=== PATIENT | female | born 1970 | race Caucasian/White ===

== ENCOUNTER → 2016-11-17 | Outpatient (CLI) | payer OTHER | LOC: RAD 09:53 | DX: J06.9 Acute upper respiratory infection, unspecified (principal) | CPT/HCPCS: 71020 ==

== ENCOUNTER 2020-06-27 14:08 | Emergency (ER) | payer OTHER ==
[~2020-06-27 14:08] MED LIST: CYCLOBENZAPRINE10 MG PO; IBUPROFEN800 MG PO; PHENERGAN 25 MG25 MG PR; ZOFRAN4 MG PO
== END 2020-06-27 14:30 | disposition left against medical advice (07) ==
LOC: ER1 14:08
DX: R05 Cough (principal); R09.89 Other specified symptoms and signs involving the circulatory and respiratory systems; R53.83 Other fatigue; Z53.21 Procedure and treatment not carried out due to patient leaving prior to being seen by health care provider

== ENCOUNTER → 2021-03-28 | Outpatient (CLI) | payer OTHER | LOC: KOH-I 14:14 | DX: M25.571 Pain in right ankle and joints of right foot (principal) | CPT/HCPCS: 73610; 73630 ==

== ENCOUNTER → 2021-04-04 | Outpatient (CLI) | payer OTHER | LOC: KOH-I 14:30 | DX: S82.401K Unspecified fracture of shaft of right fibula, subsequent encounter for closed fracture with nonunion (principal); M19.071 Primary osteoarthritis, right ankle and foot | CPT/HCPCS: 73700 ==